=== PATIENT | male | born 1960 | race Caucasian/White ===

== ENCOUNTER 2022-07-26 11:04 | Inpatient (IN) | payer MEDICAID ==
[2022-07-26] VITALS (10 sets, daily range): BP systolic 93–149; BP diastolic 38–107
[~2022-07-26] VITALS: Ht 172.7 cm; Wt 137.6 kg
[2022-07-26] MEDS ORDERED: BUPIVACAINE 0.25% 75 MG/30 ML VIAL ONE (12:52)
[2022-07-26] MEDS ORDERED: VANCOMYCIN 1 GM VIAL ONE (13:01)
[2022-07-26] MEDS ORDERED: ROCURONIUM BROMIDE 50 MG/5 ML ONE (13:08)
[2022-07-26] MEDS ORDERED: EPINEPHRINE (1:1000) 1 MG/ML AMPUL ONE (13:08)
[2022-07-26] MEDS ORDERED: MIDAZOLAM HCL 2 MG/2ML VIAL ONE ×2 (13:47→18:06)
[2022-07-26] MEDS ORDERED: FENTANYL PF 100MCG/2ML AMPUL ONE ×2 (13:47→18:06)
[2022-07-26] MEDS ORDERED: SEVOFLURANE 250 ML BOTTLE IH ONE (16:01)
[2022-07-26] MEDS ORDERED: TRANEXAMIC ACID 1,000 MG/10 ML VIAL ONE (16:48)
[2022-07-26] MEDS ORDERED: ALBUTEROL FS 2.5 MG/3 ML VIAL.NEB ONE ×2 (17:54→18:09)
[2022-07-26] MEDS ORDERED: IPRATROPIUM NEB FS 0.5 MG/2.5 ML AMPUL.NEB ONE (18:09)
[2022-07-26] MEDS ORDERED: MEPERIDINE25 MG SYR 25 MG/ML VIAL ONE (18:32)
[2022-07-26] MEDS ORDERED: ACETAMINOPHEN 325 MG TABLET PO PRN ×2 (19:00)
[2022-07-26] MEDS ORDERED: DOCUSATE SODIUM 250 MG CAPSULE PO PRN (19:00)
[2022-07-26] MEDS ORDERED: HYDROCODONE/APAP 5/325MG TABLET PO PRN (19:00)
[2022-07-26] MEDS ORDERED: SENNOSIDES 8.6 MG TABLET PO PRN ×2 (19:00)
[2022-07-26] MEDS ORDERED: BISACODYL SUPP (10 MG) 10 MG/SUPP.RECT SUPP.RECT RC PRN (19:00)
[2022-07-26] MEDS ORDERED: DOCUSATE SODIUM 100 MG CAPSULE PO PRN (19:00)
--- NOTE | 2022-07-26 19:15 | NUR ---
ICU/MEDIA DIRECTOR RECIEVED REPORT FROM OR NURSE KALEY ROSE. SEE FLOWSHEET FOR ASSESSMENT. CALL LIGHT WITHIN REACH.
--- NOTE | 2022-07-26 19:30 | NUR ---
ICU/CLUB ROOM ATTENDANT CALLED [facility] GROUP FOR PRIMARY MD SINCE PT IS A DIRECT ADMIT FROM OR. WAITING FOR ORDERS
[2022-07-26 20:03] LABS: HEMOGLOBIN 11.3 g/dL (13.5-17.5)
--- NOTE | 2022-07-26 20:30 | NUR ---
ICU/DENTAL PRACTICE MANAGER H/H IS BACK AT 11.336. PT HAD EBL OF 1 LITER. PT HAS LABS IN MORNING
[2022-07-26] MEDS ORDERED: IV NS 0.9% 1,000 ML IV SCH (21:00)
[2022-07-26] MEDS ORDERED: ONDANSETRON HCL/PF 4 MG/2 ML VIAL IVP PRN (21:00)
[2022-07-26] MEDS: ENOXAPARIN SODIUM 40 MG/0.4 ML DISP.SYRIN SQ SCH (22:05)
--- NOTE | 2022-07-26 22:10 | NUR ---
ICU/INTERACTIVE MEDIA DESIGNER PT VOMITED X1 GREENISH BILE, ZOFRAN PRN IVP WAS GIVEN. WILL CONTINUE TO MONITOR THIS PT.
--- NOTE | 2022-07-26 22:15 | NUR ---
ICU/MEDICAL HOSPITAL SALES STAT ABG & CHEST XRAY FOR SOB. ABG WAS DONE RESULT ARE IN CHART PO2 IS 107, PT IS CURRENTLY ON SIMPLE MASK AT 10 LITERS TURNED DOWN TO 6 LITERS. AWAIT FOR CHEST XRAY
[2022-07-26] MEDS: MORPHINE SULFATE INJ 4 MG/ML DISP.SYRIN IV PRN (22:19)
--- NOTE | 2022-07-26 22:30 | NUR ---
ICU/CANDLES POURER MORPHINE 4 MG GIVEN FOR PAIN 10/10 TO RIGHT HIP, SURGERY SITE, BY STIFF NECK LOADER NURSE. WILL CONTINUE TO MONITOR THIS PT.
[2022-07-27] VITALS (16 sets, daily range): BP systolic 113–154; BP diastolic 65–93
--- NOTE | 2022-07-27 00:10 | NUR ---
ICU/MARKETING SUPPORT ASSISTANT PROCUREMENT BUYER MD CAME TO SEE PT, ORDERED LASIX 40MGX1 NOW. WILL MONITOR THIS PT.
[2022-07-27] MEDS ORDERED: ALBUTEROL FS 2.5 MG/0.5 ML VIAL.NEB NEB PRN (00:30)
[2022-07-27] MEDS: ANCEF 1 GM/50 ML D5W IV SCH ×4 (01:10→06:28)
--- NOTE | 2022-07-27 01:23 | NUR ---
ICU/AREA LOSS PREVENTION MANAGER TRIMMER AND REINFORCER MD GAVE ORDER FOR LASIX, AND STAT LABS. ALSO D/C IVF SINCE PT GOT 6 LITERS OF FLUID IN OR.
[2022-07-27] MEDS ORDERED: FUROSEMIDE 40 MG/4 ML VIAL IV ONE (01:30)
[2022-07-27] MEDS: HYDROCODONE/APAP 5/325MG TABLET PO PRN ×2 (01:41→07:00)
--- NOTE | 2022-07-27 01:45 | NUR ---
ICU/PLATFORM ATTENDANT PT REQUESTED NORCO FOR PAIN RATED 7/10, TO RIGHT HIP AREA. APPLIED ICE TO AREA.
[2022-07-27] MEDS: IPRATROPIUM NEB FS 0.5 MG/2.5 ML AMPUL.NEB IH SCH ×4 (01:48→19:38)
[2022-07-27] MEDS: ALBUTEROL FS 2.5 MG/0.5 ML VIAL.NEB NEB SCH ×4 (01:48→19:39)
--- NOTE | 2022-07-27 02:34 | NUR ---
ICU/CRACKER DOUGH MIXER UNIT BUSY WITH ADMISSIONS LATE GIVING MEDICATIONS. PT GIVEN LASIX 40MH AND RT GAVE BREATHING TREATMENT.
[2022-07-27] MEDS: MORPHINE SULFATE INJ 4 MG/ML DISP.SYRIN IV PRN ×2 (04:26→08:41)
[2022-07-27 05:29] LABS: BASOPHILS % (AUTO) 0.1 % (0.0-2.0); HEMATOCRIT 32 % (39-51); HEMOGLOBIN 10.4 g/dL (13.5-17.5); LYMPHOCYTES # (AUTO) 0.5 K/uL (0.8-4.8); LYMPHOCYTES % (AUTO) 4.1 % (20.0-44.0); MEAN CORPUSCULAR HGB CONC 33 g/dl (31.0-36.0); MEAN CORPUSCULAR VOLUME 94 fL (80-96); MONOCYTES # (AUTO) 0.6 K/uL (0.1-1.30); MONOCYTES % (AUTO) 5.3 % (2.0-12.0); NEUTROPHILS # (AUTO) 11.1 K/uL (1.8-8.9); NEUTROPHILS % (AUTO) 90.5 % (43.0-81.0); PLATELET COUNT (AUTO) 172 K/uL (150-450); RED BLOOD CELL COUNT(AUTO) 3.36 MIL/uL (4.5-6.0); WHITE BLOOD COUNT (AUTO) 12.3 K/uL (4.3-11.0)
--- NOTE | 2022-07-27 05:30 | NUR ---
ICU/LIFE ADVISOR MORPHINE 4 MG GIVEN FOR PAIN 10/10 TO RIGHT HIP, SURGERY SITE, BY CAFETERIA OPERATOR NURSE. WILL CONTINUE TO MONITOR THIS PT.
[2022-07-27 05:40] LABS: ALBUMIN 3.2 g/dL (3.4-5.0); BILIRUBIN,TOTAL 0.3 mg/dL (0.2-1.0); CALCIUM, SERUM 8.2 mg/dL (8.5-10.1); CREATININE 1.5 mg/dL (0.6-1.3); MAGNESIUM 1.9 mg/dL (1.8-2.4); PHOSPHORUS 3.9 mg/dL (2.5-4.9); POTASSIUM 4.7 mmol/L (3.5-5.1); TOTAL PROTEIN, SERUM 6.1 g/dL (6.4-8.2)
--- NOTE | 2022-07-27 05:52 | NUR ---
ICU/ARTIFICIAL LEATHER CALENDER OPERATOR PT GIVEN LASIX 20MG AND RT GAVE BREATHING TREATMENT. CALL LIGHT WITHIN REACH, PT REMAINS BUSY DUE TO MANY DEMAND. PT IS CURRENTLY ON 6 LITERS N/C WITH SATURATION AT 95-97%.
[2022-07-27] MEDS ORDERED: FUROSEMIDE 20 MG/2 ML VIAL IV ONE (06:00)
[2022-07-27] MEDS ORDERED: IPRATROPIUM/ALBUTEROL INHALER IH SCH (06:00)
--- NOTE | 2022-07-27 07:00 | NUR ---
CARE CONNECTOR NOTE RECEIVED PATIENT IN BED RESTING ALERT ORIENTED X4 VERBALLY RESPONSIVE ON 6L OXYGEN VIA NASAL CANNULA, O2:97% IV SITE IS ON RIGHT FOREARM INTACT PATENT,DELGADO CATH IN PLACE URINE DRAINING YELLOW/CLEAR BY GRAVITY SAFETY MEASURE IMPLEMENT BED IN LOW POSITION AND LOCKED,HEAD OF THE BED ELEVATED, CALL LIGHT WITHIN REACH CONTINUE TO MONITOR.
--- NOTE | 2022-07-27 07:01 | NUR ---
ICU/CARBON CAPTURE POWER PLANT OPERATOR PERCOCET 1 TAB WAS GIVEN FOR PAIN RATED 7/10 TO SURGERY SITE. CALL LIGHT WITHIN REACH. REPORT GIVEN TO DAY NURSE SARAH.
[2022-07-27] MEDS ORDERED: oxyCODONE HCL SR 10MG TAB.SR.12H PO PRN (09:00)
[2022-07-27] MEDS ORDERED: oxyCODONE/APAP (5/325 MG) 1 UDTAB TABLET PO PRN ×2 (09:00→12:30)
[2022-07-27] MEDS ORDERED: NALOXONE HCL 0.4 MG/ML AMPUL IV PRN (09:00)
--- NOTE | 2022-07-27 09:45 | NUR ---
MARKETING COMPLIANCE MANAGER NOTE REPORT GIVEN TO DINO BUTTERFIELD AT [facility],PATIENT WILL BE ON TELE MONITORING MD ORDERED WILL TRANSFER TO ROOM 120-2.
--- NOTE | 2022-07-27 10:00 | NUR ---
CELLOPHANE PRESS OPERATOR NOTE PATIENT TRANSFERRED TO ROOM 120-2 PER ACLS PROTOCOL,DINO RN REPORT GIVEN FOR CONTINUATION OF CAR.
--- NOTE | 2022-07-27 10:20 | NUR ---
JUAN TEXTILE MACHINE OPERATOR NOTES: RECEIVED 62YO MALE PT FROM ICU VIA BED ACCOMPANIED BY RN BENJAMIN. PT ALERT AND ORIENTED X 4 AND ABLE TO MAKE NEEDS KNOWN. ON O2 INHALATION @ 6LPM VIA NC AND SATURATING 100 %. SHAPE BRICK MOLDER WITH CURRENT READING OF : SINUS TACHY @100. NOTED WITH R FOREARM GAUGE 22 PATENT,INTACT AND SL. SURGICAL DRESSING ON RIGHT LEG S/P R HIP ORIF WITH BONE GRAFT UNDER DR MAGALLON, NOTED WITH LUIS WRAP NO UNUSUAL DISCHARGE AND NOTED WITH ACCORDION HEMOVAC NOTED. DVT PUMP NOTED. DELGADO CATHETER DRAINING CLEAR YELLOW COLORED URINE. SKIN ISSUES NOTED: R/L ARM PURPLISH DISCOLORATION. VS WITHIN NORMAL LIMITS. HOME MEDS BROUGHT TO PHARMACY, FOR MED RECON AND SUPERVISOR LABORATORY ANIMAL FACILITY KEH INFORMED. SAFETY MEASURES INITIATED: BED LOCKED AND IN LOWEST POSITION, SIDE RAILS UP X2. CALL LIGHT AND BED SIDE TABLE IN EASY REACH FOR HELP. WILL MONITOR ACCORDINGLY.
[2022-07-27] MEDS ORDERED: ALBU18HF2 IH (10:45)
[2022-07-27] MEDS ORDERED: LOSA25TA27 PO (10:45)
[2022-07-27] MEDS ORDERED: BUDE10.2 IH (10:45)
[2022-07-27] MEDS ORDERED: UMEC62.5 INH (10:45)
[2022-07-27] MEDS ORDERED: METO50TA16 PO (10:45)
[2022-07-27] MEDS ORDERED: PANT40TA2 PO (10:45)
[2022-07-27] MEDS ORDERED: HYDR-3980 MT (10:45)
[2022-07-27] MEDS ORDERED: GABA300C PO (10:45)
[2022-07-27] MEDS ORDERED: OXYC1TAB8 PO (10:45)
[2022-07-27] MEDS ORDERED: MONT10TA22 PO (10:45)
[2022-07-27] MEDS ORDERED: FLUT16SP (10:45)
[2022-07-27] MEDS ORDERED: GLIM1TAB18 PO (10:45)
[2022-07-27] MEDS ORDERED: FERR325T23 PO (10:45)
[2022-07-27] MEDS ORDERED: SPIR25TA6 PO (10:45)
[2022-07-27] MEDS ORDERED: ALBU2.5V38 NEB (10:45)
[2022-07-27] MEDS ORDERED: BUSP10TA3 PO (10:45)
[2022-07-27] MEDS ORDERED: HYDR-4077 PO (10:45)
[2022-07-27] MEDS ORDERED: ASPI-1169 PO (10:45)
[2022-07-27] MEDS ORDERED: BUPR-53 PO (10:45)
[2022-07-27] MEDS ORDERED: METF-440 PO (10:45)
[2022-07-27] MEDS ORDERED: PSEU30TA34 PO (10:45)
[2022-07-27] MEDS ORDERED: FURO-145 PO (10:45)
[2022-07-27] MEDS ORDERED: IBUP-1955 PO (10:45)
[2022-07-27] MEDS ORDERED: ATOR10TA PO (10:45)
[2022-07-27] MEDS ORDERED: AMLO-213 PO (10:45)
[2022-07-27] MEDS ORDERED: ALPR0.5T8 PO (10:45)
[2022-07-27] MEDS ORDERED: ROFL250T PO (10:45)
[2022-07-27] MEDS ORDERED: HYDR200T4 PO (10:45)
[2022-07-27] MEDS ORDERED: METHOCARBAMOL (500MG) 500 MG TABLET PO PRN (11:30)
[2022-07-27] MEDS ORDERED: METHOCARBAMOL (500MG) 500 MG TABLET PO SCH (12:00)
[2022-07-27] MEDS ORDERED: HYDROCODONE/APAP 10/325MG TABLET PO PRN (12:30)
[2022-07-27] MEDS ORDERED: ALPRAZOLAM 0.5 MG TABLET PO PRN (12:30)
[2022-07-27] MEDS: GABAPENTIN 300 MG CAPSULE PO SCH ×2 (13:14→16:45)
[2022-07-27] MEDS: HYDROMORPHONE INJ 2 MG/ML DISP.SYRIN IV PRN ×3 (13:19→22:25)
[2022-07-27] MEDS: NICOTINE PATCH (21MG) 21 MG PATCH.TD24 TD SCH (15:09)
[2022-07-27] MEDS: SPIRONOLACTONE 25 MG TABLET PO SCH (16:45)
[2022-07-27] MEDS: hydrALAZINE HCL 50 MG TABLET PO SCH (16:47)
[2022-07-27] MEDS: HYDROXYCHLOROQUINE 200 MG TABLET PO SCH (16:47)
[2022-07-27] MEDS: busPIRone 5 MG TABLET PO SCH (16:49)
[2022-07-27] MEDS: METOPROLOL TARTRATE 50 MG TABLET PO SCH (16:49)
[2022-07-27] MEDS: FERROUS SULFATE (325 MG) 325 MG/TAB TABLET PO SCH (16:49)
[2022-07-27] MEDS: BUDESONIDE INH SCH (17:22)
[2022-07-27] MEDS: FORMOTEROL FUMARATE INH SCH (17:22)
--- NOTE | 2022-07-27 17:39 | NUR ---
RN NOTES: CALLED LABS FOR URINE SPECIMEN GROCERY CADDY.
--- NOTE | 2022-07-27 17:40 | NUR ---
RN NOTES: PT REQUESTED: DC NORCO 10/325 Q 6HRS AND HAVE PERCOCET 5/325 MG/TAB Q 4. DR TONY HERRERA. ORDERS NOTED AND CARRIED OUT. INFORMED PT.
--- NOTE | 2022-07-27 18:44 | NUR ---
RN NOTES: DR DEL TORO ORDERED DC OXYCONTIN 10, ORDERS NOTED AND CARRIED OUT.
--- NOTE | 2022-07-27 18:45 | NUR ---
FRAME ASSEMBLER CLOSING NOTES: PT IN BED, AWAKE, ALERT AND ORIENTED X 4 AND ABLE TO MAKE NEEDS KNOWN. NO SOB OR CARDIAC DISTRESS. ON O2 INHALATION @6LPM VIA NC AND SAT 100%. POND WORKER: CURRENT READING SINUS RHYTHM WITH PACS@79BPM. IV ACCESS ON L HAND GAUGE 22 PATENT,INTACT AND SL. SURGICAL DRESSING WRAPPED WITH LUIS BANDAGE ON RIGHT LEG WITH ATTACHED WOUND VACUUM (ACCORDION) DRAINED 100 ML OF BLOOD. FC DRAINING CLEAR YELLOW COLORED URINE VIA GRAVITY DRAINED 1,200ML. SAFETY MEASURES MAINTAINED: BED LOCKED AND IN LOWEST POSITION, SIDE RAILS UP X 2 CALL LIGHT AND BED SIDE TABLE IN EASY REACH AND WILL MONITOR ACCORDINGLY.
[2022-07-27 19:19] LABS: BILIRUBIN,URINE NEGATIVE (NEGATIVE); COLOR,URINE YELLOW (YELLOW); LEUKOCYTE ESTERASE ,URINE NEGATIVE (NEGATIVE); NITRITE, URINE NEGATIVE (NEGATIVE); PROTEIN,URINE NEGATIVE (NEGATIVE); UGLUCOSE NEGATIVE (NEGATIVE); UROBILINOGEN,URINE 0.2 EU/dL (0.2)
[2022-07-27] MEDS: oxyCODONE/APAP (5/325 MG) 1 UDTAB TABLET PO PRN (19:19)
[2022-07-27] MEDS: ENOXAPARIN SODIUM 40 MG/0.4 ML DISP.SYRIN SQ SCH (19:19)
[2022-07-27 19:28] LABS: BACTERIA,URINE None seen /HPF (None Seen); SQUAMOUS EPITHELIAL CELL,UR 0-2 /HPF (None Seen); WBC,URINE 0-2 /HPF (0-3)
[2022-07-27 19:32] LABS: CREATININE, URINE 72.7 MG/DL (30.0-125.0)
[2022-07-27 19:55] LABS: HEMOGLOBIN 9.3 g/dL (13.5-17.5)
--- NOTE | 2022-07-27 20:00 | NUR ---
RECEIVED PATIENT IN BED, ALERT/ORIENTED X4, 6LPM VIA NC, SPO2 94%, CONSTANT RIGHT LEG PAIN OF 9/10, S/P RIGHT HIP ORIF WITH BONE GRAFT 07/26/[address] MAGALLON. DRESSING LUIS WRAP, CLEAN, DRY AND INTACT, ACCORDION DRAIN, SANGUINEOUS DRAINAGE, DELGADO CATHETER DRAINING WELL, KEPT SAFE, WILL CONTINUE TO MONITOR.
[2022-07-28] VITALS: BP 121/67
[2022-07-28] MEDS: oxyCODONE/APAP (5/325 MG) 1 UDTAB TABLET PO PRN ×5 (00:04→21:36)
[2022-07-28] MEDS: IPRATROPIUM NEB FS 0.5 MG/2.5 ML AMPUL.NEB IH SCH ×4 (01:00→21:20)
[2022-07-28] MEDS: ALBUTEROL FS 2.5 MG/0.5 ML VIAL.NEB NEB SCH ×4 (01:00→21:20)
[2022-07-28] MEDS: HYDROMORPHONE INJ 2 MG/ML DISP.SYRIN IV PRN ×5 (02:50→23:41)
[2022-07-28 04:00] VITALS: BP 128/63
[2022-07-28 07:08] LABS: BASOPHILS # (AUTO) 0.1 K/uL (0.0-0.2); BASOPHILS % (AUTO) 0.5 % (0.0-2.0); EOSINOPHILS % (AUTO) 0.6 % (0.0-6.0); HEMATOCRIT 28 % (39-51); HEMOGLOBIN 9.1 g/dL (13.5-17.5); LYMPHOCYTES # (AUTO) 1.4 K/uL (0.8-4.8); LYMPHOCYTES % (AUTO) 11.9 % (20.0-44.0); MEAN CORPUSCULAR HGB CONC 32 g/dl (31.0-36.0); MEAN CORPUSCULAR VOLUME 95 fL (80-96); MONOCYTES # (AUTO) 1.1 K/uL (0.1-1.30); MONOCYTES % (AUTO) 9.3 % (2.0-12.0); NEUTROPHILS % (AUTO) 77.7 % (43.0-81.0); PLATELET COUNT (AUTO) 154 K/uL (150-450); RED BLOOD CELL COUNT(AUTO) 2.94 MIL/uL (4.5-6.0); WHITE BLOOD COUNT (AUTO) 11.6 K/uL (4.3-11.0)
[2022-07-28 08:00] VITALS: BP 140/70
[2022-07-28 08:04] LABS: CALCIUM, SERUM 8.6 mg/dL (8.5-10.1); CREATININE 1.4 mg/dL (0.6-1.3); POTASSIUM 4.2 mmol/L (3.5-5.1)
--- NOTE | 2022-07-28 08:07 | NUR ---
FOUNDING PARTNER OPENING NOTES: PT IN BED, AWAKE, ALERT AND ORIENTED X 4 AND ABLE TO MAKE NEEDS KNOWN. NO SOB OR CARDIAC DISTRESS. ON O2 INHALATION @6LPM VIA NC AND SAT 95%. DIRECTOR OF COLLECTIONS: CURRENT READING SINUS RHYTHM WITH 120 BPM. IV ACCESS ON L HAND GAUGE 22 PATENT,INTACT AND SL. SURGICAL DRESSING WRAPPED WITH LUIS BANDAGE ON RIGHT LEG WITH ATTACHED WOUND VACUUM. FC DRAINING CLEAR YELLOW COLORED URINE VIA GRAVITY. SAFETY MEASURES MAINTAINED: BED LOCKED AND IN LOWEST POSITION, SIDE RAILS UP X 2 CALL LIGHT AND BED SIDE TABLE IN EASY REACH AND WILL MONITOR ACCORDINGLY.
[2022-07-28] MEDS: BUDESONIDE INH SCH ×2 (08:20→16:16)
[2022-07-28] MEDS: FORMOTEROL FUMARATE INH SCH ×2 (08:20→16:16)
[2022-07-28] MEDS: GLIMEPIRIDE 1 MG TABLET PO SCH (08:20)
[2022-07-28] MEDS: NICOTINE PATCH (21MG) 21 MG PATCH.TD24 TD SCH (08:20)
[2022-07-28] MEDS: MONTELUKAST SODIUM (10MG) 10 MG TABLET PO SCH (08:20)
[2022-07-28] MEDS: INCRUSE ELLIPTA INH SCH (08:20)
[2022-07-28] MEDS: GABAPENTIN 300 MG CAPSULE PO SCH ×3 (08:21→16:15)
[2022-07-28] MEDS: ATORVASTATIN 10 MG TABLET PO SCH (08:21)
[2022-07-28] MEDS: ASPIRIN 81 MG TAB.CHEW PO SCH (08:23)
[2022-07-28] MEDS: busPIRone 5 MG TABLET PO SCH ×2 (08:24→16:15)
[2022-07-28] MEDS: FERROUS SULFATE (325 MG) 325 MG/TAB TABLET PO SCH ×2 (08:29→16:16)
[2022-07-28] MEDS: ROFLUMILAST 500 MG PO SCH (08:30)
[2022-07-28] MEDS: SPIRONOLACTONE 25 MG TABLET PO SCH (09:00)
[2022-07-28] MEDS: HYDROXYCHLOROQUINE 200 MG TABLET PO SCH ×2 (09:00→16:44)
[2022-07-28] MEDS: BUPROPION XL 150 MG TAB.ER.24 PO SCH (09:00)
[2022-07-28] MEDS: hydrALAZINE HCL 50 MG TABLET PO SCH (09:00)
[2022-07-28] MEDS ORDERED: ROFLUMILAST 500 MG PO SCH ×2 (09:00)
[2022-07-28] MEDS: PANTOPRAZOLE 40 MG TABLET.DR PO SCH (09:01)
[2022-07-28] MEDS: FUROSEMIDE 20 MG TABLET PO SCH (10:10)
[2022-07-28] MEDS: METOPROLOL TARTRATE 50 MG TABLET PO SCH ×2 (10:10→17:00)
[2022-07-28] MEDS: LOSARTAN POTASSIUM 25 MG TABLET PO SCH (10:11)
[2022-07-28] MEDS: AMLODIPINE BESYLATE 10 MG TABLET PO SCH (10:11)
[2022-07-28 12:00] VITALS: BP 115/66
--- NOTE | 2022-07-28 15:14 | NUR ---
Radha Badillo aware, BIODIESEL OPERATIONS MANAGER that pt refused Aldactone, wellbutrin and Apresoline, pt claimed he isnt taking those meds anymore, per Modesto BIODIESEL OPERATIONS MANAGER to dc it, noted and carried out
[2022-07-28] MEDS: CEFAZOLIN 2 GM in IV D5W 100 ML IV SCH ×2 (15:55→23:42)
[2022-07-28 16:00] VITALS: BP 113/69
[2022-07-28] MEDS: POLYETHYLENE GLYCOL 3350 17 GM POWD.PACK PO SCH (16:27)
--- NOTE | 2022-07-28 17:22 | NUR ---
Deena Badillo NP aware that pt is refusing Plaquenil and stated he isnt taking it anymore, Deena Badillo NP with orders to DC Plaquenil, noted and carried out
[2022-07-28] MEDS: ENOXAPARIN SODIUM 40 MG/0.4 ML DISP.SYRIN SQ SCH (18:41)
--- NOTE | 2022-07-28 18:43 | NUR ---
SUPPLIER SPECIALIST CLOSING NOTES: PT IN BED, AWAKE, ALERT AND ORIENTED X 4 AND ABLE TO MAKE NEEDS KNOWN. NO SOB OR CARDIAC DISTRESS. ON O2 INHALATION @6LPM VIA NC AND SAT 94%. AIR ROUTE CONTROLLER: CURRENT READING SINUS RHYTHM WITH 122 BPM. IV ACCESS ON RIGHT HAND GAUGE 22 PATENT,INTACT AND PATENT. SURGICAL DRESSING WRAPPED WITH LUIS BANDAGE ON RIGHT LEG WITH ATTACHED HEMOVAC AND DRAIN 40CC.. SAFETY MEASURES MAINTAINED: BED LOCKED AND IN LOWEST POSITION, SIDE RAILS UP X 2 CALL LIGHT AND BED SIDE TABLE IN EASY REACH AND WILL MONITOR ACCORDINGLY.
--- NOTE | 2022-07-28 19:48 | NUR ---
LIFESTYLE CONSULTANT OPENING NOTES: PT IN BED, AWAKE, ALERT AND ORIENTED X 4 AND ABLE TO MAKE NEEDS KNOWN. NO SOB OR CARDIAC DISTRESS. ON O2 INHALATION @6LPM VIA NC AND SAT 94%. FISCAL MANAGER: CURRENT READING SINUS RHYTHM WITH 122 BPM. IV ACCESS ON RIGHT HAND GAUGE 22 PATENT,INTACT AND PATENT. SURGICAL DRESSING WRAPPED WITH LUIS BANDAGE ON RIGHT LEG WITH ATTACHED HEMOVAC AND DRAIN. SAFETY MEASURES MAINTAINED: BED LOCKED AND IN LOWEST POSITION, SIDE RAILS UP X 2 CALL LIGHT AND BED SIDE TABLE IN EASY REACH . PT REQUESTED PRN DILAUDID MED GIVEN AND TOLERATED WELL.
[2022-07-28 20:00] VITALS: BP 133/64
--- NOTE | 2022-07-28 20:00 | NUR ---
RN NOTE PER PHARMACIST OKAY TO GIVE THE NEXT DOSE OF ANCEF IN Q8HR ITS SUPPOSED TO BE GIVEN DESPITE IT BEING SCHEDULED FOR 2100 SINCE IT WILL ONLY HAVE BEEN 4 1/2 HRS SINCE THE PREVIOUS DOSE WAS ADMINISTERED.
--- NOTE | 2022-07-28 21:45 | NUR ---
RN NOTE PRN PERCOCET GIVEN FOR PAIN 12/13 TOLERATED WELL.
--- NOTE | 2022-07-29 00:09 | NUR ---
RN NOTE PRN DILAUDID GIVEN FOR PAIN 78/10 TOLERATED WELL.
[2022-07-29 00:19] VITALS: BP 129/89
[2022-07-29] MEDS: IPRATROPIUM NEB FS 0.5 MG/2.5 ML AMPUL.NEB IH SCH ×4 (01:30→20:02)
[2022-07-29] MEDS: ALBUTEROL FS 2.5 MG/0.5 ML VIAL.NEB NEB SCH ×4 (01:30→20:02)
[2022-07-29] MEDS: oxyCODONE/APAP (5/325 MG) 1 UDTAB TABLET PO PRN ×3 (03:41→13:32)
--- NOTE | 2022-07-29 03:47 | NUR ---
RN NOTE PRN PERCOCET GIVEN FOR PAIN / TOLERATED WELL.
[2022-07-29 04:40] VITALS: BP 142/79
[2022-07-29] MEDS: HYDROMORPHONE INJ 2 MG/ML DISP.SYRIN IV PRN ×4 (05:44→22:12)
--- NOTE | 2022-07-29 05:56 | NUR ---
RN NOTE PRN DILAUDID GIVEN FOR PAIN 12/13 TOLERATED WELL.
--- NOTE | 2022-07-29 05:57 | NUR ---
RN NOTE 40CC OF SANGUINOUS DRAINAGE REMOVED FOR HEMOVAC.
[2022-07-29 05:58] LABS: BASOPHILS # (AUTO) 0.1 K/uL (0.0-0.2); BASOPHILS % (AUTO) 0.5 % (0.0-2.0); EOSINOPHILS % (AUTO) 1.3 % (0.0-6.0); HEMATOCRIT 26 % (39-51); HEMOGLOBIN 8.8 g/dL (13.5-17.5); LYMPHOCYTES # (AUTO) 1.1 K/uL (0.8-4.8); LYMPHOCYTES % (AUTO) 10.4 % (20.0-44.0); MEAN CORPUSCULAR HGB CONC 34 g/dl (31.0-36.0); MEAN CORPUSCULAR VOLUME 94 fL (80-96); MONOCYTES % (AUTO) 9.3 % (2.0-12.0); NEUTROPHILS # (AUTO) 8.3 K/uL (1.8-8.9); NEUTROPHILS % (AUTO) 78.5 % (43.0-81.0); PLATELET COUNT (AUTO) 161 K/uL (150-450); RED BLOOD CELL COUNT(AUTO) 2.76 MIL/uL (4.5-6.0); WHITE BLOOD COUNT (AUTO) 10.6 K/uL (4.3-11.0)
[2022-07-29 06:12] LABS: CALCIUM, SERUM 8.4 mg/dL (8.5-10.1); CREATININE 1.4 mg/dL (0.6-1.3); POTASSIUM 3.5 mmol/L (3.5-5.1)
--- NOTE | 2022-07-29 06:40 | NUR ---
CONVENTION WORKER CLOSING NOTES: PT IN BED, AWAKE, ALERT AND ORIENTED X 4 AND ABLE TO MAKE NEEDS KNOWN. NO SOB OR CARDIAC DISTRESS. ON O2 INHALATION @4LPM VIA NC AND SAT 96%. CONCRETE BUCKET HOOKER: CURRENT READING SINUS RHYTHM. IV ACCESS ON RIGHT HAND GAUGE 22 PATENT,INTACT AND PATENT. SURGICAL DRESSING WRAPPED WITH LUIS BANDAGE ON RIGHT LEG WITH ATTACHED HEMOVAC AND DRAIN 40CC OUTPUT. SAFETY MEASURES MAINTAINED: BED LOCKED AND IN LOWEST POSITION, SIDE RAILS UP X 2 CALL LIGHT AND BED SIDE TABLE IN EASY REACH .
--- NOTE | 2022-07-29 07:31 | NUR ---
PACKAGE SORTER OPENING NOTES: PT IN BED, AWAKE, ALERT AND ORIENTED X 4, ABLE TO MAKE NEEDS KNOWN. NO SOB OR CARDIAC DISTRESS. ON O2 INHALATION @4LPM VIA NC. IV ACCESS ON RIGHT HAND GAUGE 22 PATENT,INTACT AND PATENT. SURGICAL DRESSING WRAPPED WITH LUIS BANDAGE ON RIGHT LEG WITH ATTACHED HEMOVAC. ALL SAFETY MEASURES IN PLACE: BED LOCKED AND IN LOWEST POSITION, SIDE RAILS UP X 2 CALL LIGHT AND BED SIDE TABLE IN EASY REACH. WILL CONTINUE TO MONITOR .
[2022-07-29 08:00] VITALS: BP 133/58
[2022-07-29] MEDS: GLIMEPIRIDE 1 MG TABLET PO SCH (08:08)
[2022-07-29] MEDS: FUROSEMIDE 20 MG TABLET PO SCH (08:08)
[2022-07-29] MEDS: ASPIRIN 81 MG TAB.CHEW PO SCH (08:08)
[2022-07-29] MEDS: INCRUSE ELLIPTA INH SCH (08:08)
[2022-07-29] MEDS: PANTOPRAZOLE 40 MG TABLET.DR PO SCH (08:08)
[2022-07-29] MEDS: FORMOTEROL FUMARATE INH SCH ×2 (08:08→16:47)
[2022-07-29] MEDS: MONTELUKAST SODIUM (10MG) 10 MG TABLET PO SCH (08:08)
[2022-07-29] MEDS: busPIRone 5 MG TABLET PO SCH ×2 (08:08→16:49)
[2022-07-29] MEDS: BUDESONIDE INH SCH ×2 (08:08→16:47)
[2022-07-29] MEDS: POLYETHYLENE GLYCOL 3350 17 GM POWD.PACK PO SCH (08:08)
[2022-07-29] MEDS: LOSARTAN POTASSIUM 25 MG TABLET PO SCH (08:09)
[2022-07-29] MEDS: FERROUS SULFATE (325 MG) 325 MG/TAB TABLET PO SCH ×2 (08:09→16:47)
[2022-07-29] MEDS: AMLODIPINE BESYLATE 10 MG TABLET PO SCH (08:09)
[2022-07-29] MEDS: GABAPENTIN 300 MG CAPSULE PO SCH ×4 (08:09→16:51)
[2022-07-29] MEDS: METOPROLOL TARTRATE 50 MG TABLET PO SCH ×2 (08:10→16:48)
[2022-07-29] MEDS: NICOTINE PATCH (21MG) 21 MG PATCH.TD24 TD SCH (08:10)
[2022-07-29] MEDS: ROFLUMILAST 500 MG PO SCH ×2 (08:10→21:18)
[2022-07-29] MEDS: ATORVASTATIN 10 MG TABLET PO SCH (08:10)
[2022-07-29] MEDS: CEFAZOLIN 2 GM in IV D5W 100 ML IV SCH ×3 (09:06→23:23)
--- NOTE | 2022-07-29 11:07 | NUR ---
SPECIALTY PLANT SUPERVISOR NOTES PATIENT REQUESTED HOME MED ROFLUMILAST (2 EACH) BE SWITCHED TO PM. PHARMACY NOTIFIED.
--- NOTE | 2022-07-29 11:28 | NUR ---
KETTLE CLEANER NOTES PATIENT REFUSED MEDICATION STATING THAT HE NO LONGER TAKES MONTELUKAST OR GLIMEPIRIDE. PER TONY BUTTERFIELD VIDEO GAME ENGINEER, DISCONTINUED MEDICATIONS.
[2022-07-29 12:00] VITALS: BP 108/54
[2022-07-29 16:00] VITALS: BP 123/48
--- NOTE | 2022-07-29 19:38 | NUR ---
FACTORY LAY OUT ENGINEER CLOSING NOTES PT IN BED, AWAKE, ALERT AND ORIENTED X 4. ON O2 INHALATION @4.5 LPM VIA NC. ON ELECTRONIC MONITOR WITH SR/ST. IV ACCESS ON RIGHT HAND GAUGE 22 PATENT, INTACT AND PATENT. SURGICAL DRESSING WRAPPED WITH LUIS BANDAGE ON RIGHT LEG WITH ATTACHED HEMOVAC. PATIENT REQUESTED HIS BED BE CHANGED TO ONE WHERE HOB CAN BE ELEVATED FURTHER UP. WILL ENDORSE TO ONCOMING SHIFT RN. ALL SAFETY MEASURES MAINTAINED: BED LOCKED AND IN LOWEST POSITION, SIDE RAILS UP X 2 CALL LIGHT AND BED SIDE TABLE IN EASY REACH. WILL ENDORSE TO ONCOMING SHIFT FOR COLBY.
[2022-07-29 20:00] VITALS: BP 100/61
--- NOTE | 2022-07-29 20:00 | NUR ---
RN OPENING NOTE PATIENT AWAKE IN BED WATCHING TV. A/OX4. NO S/S OF DISTRESS, BREATHING WITHOUT DIFFICULTY ON 5L NC. R-HAND #22 INTACT AND PATENT. ACCORDION DRAIN INTACT. TELE READS SR 78. SAFETY MEASURES IN PLACE: BED LOCKED AND AT LOWEST POSITION, MID-FOWLERS, RAILS UP X2, CALL GAMEZ WITHIN REACH. WILL CONTINUE TO MONITOR PATIENT.
[2022-07-29] MEDS: MORPHINE SULFATE INJ 4 MG/ML DISP.SYRIN IV PRN (20:22)
[2022-07-29] MEDS: ENOXAPARIN SODIUM 40 MG/0.4 ML DISP.SYRIN SQ SCH (20:22)
[2022-07-30 00:35] VITALS: BP 105/60
[2022-07-30] MEDS: ALBUTEROL FS 2.5 MG/0.5 ML VIAL.NEB NEB SCH ×4 (01:17→20:16)
[2022-07-30] MEDS: IPRATROPIUM NEB FS 0.5 MG/2.5 ML AMPUL.NEB IH SCH ×4 (01:17→20:16)
--- NOTE | 2022-07-30 04:00 | NUR ---
RN NOTE PATIENT REFUSED TO BE CLEANED. WILL TRY AGAIN LATER ON AT OR AROUND 0500. PATIENT O/W STABLE; WILL CONTINUE TO MONITOR PATIENT.
[2022-07-30 04:38] VITALS: BP 126/57
[2022-07-30] MEDS: HYDROMORPHONE INJ 2 MG/ML DISP.SYRIN IV PRN ×4 (05:35→23:50)
--- NOTE | 2022-07-30 06:33 | NUR ---
RN CLOSING NOTE PATIENT AWAKE IN BED. A/OX4. NO S/S OF DISTRESS, BREATHING WITHOUT DIFFICULTY ON 5L NC. R-HAND #22 TKO INTACT AND PATENT. TELE READS SR ST 104. SAFETY MEASURES IN PLACE: BED LOCKED AND AT LOWEST POSITION, MID-FOWLERS, RAILS UP X2, CALL GAMEZ WITHIN REACH. WILL ENDORSE TO NEXT SHIFT FOR COLBY.
[2022-07-30 07:18] LABS: CALCIUM, SERUM 8.6 mg/dL (8.5-10.1); CREATININE 1.3 mg/dL (0.6-1.3); POTASSIUM 3.5 mmol/L (3.5-5.1)
[2022-07-30 07:20] LABS: BASOPHILS # (AUTO) 0.1 K/uL (0.0-0.2); BASOPHILS % (AUTO) 0.8 % (0.0-2.0); EOSINOPHILS % (AUTO) 1.8 % (0.0-6.0); HEMATOCRIT 26 % (39-51); HEMOGLOBIN 8.7 g/dL (13.5-17.5); LYMPHOCYTES # (AUTO) 1.4 K/uL (0.8-4.8); LYMPHOCYTES % (AUTO) 15.1 % (20.0-44.0); MEAN CORPUSCULAR HGB CONC 33 g/dl (31.0-36.0); MEAN CORPUSCULAR VOLUME 95 fL (80-96); MONOCYTES # (AUTO) 0.8 K/uL (0.1-1.30); MONOCYTES % (AUTO) 9.3 % (2.0-12.0); NEUTROPHILS # (AUTO) 6.6 K/uL (1.8-8.9); PLATELET COUNT (AUTO) 204 K/uL (150-450); RED BLOOD CELL COUNT(AUTO) 2.78 MIL/uL (4.5-6.0)
--- NOTE | 2022-07-30 07:30 | NUR ---
Z OS MAINFRAME SYSTEMS PROGRAMMER OPENING NOTE PATIENT AWAKE IN BED WATCHING TV. A/O X4. ON NC 5L WITH NO SOB OR S/S OF RESPIRATORY DISTRESS. BREATHING EVEN AND UNLABORED. R-HAND #22 INTACT AND PATENT. ACCORDION DRAIN INTACT. ALL SAFETY MEASURES IN PLACE: BED LOCKED AND AT LOWEST POSITION, MID-FOWLERS, RAILS UP X2, AND CALL LIGHT WITHIN REACH. WILL CONTINUE TO MONITOR PATIENT.
[2022-07-30 08:00] VITALS: BP 118/80
[2022-07-30] MEDS: POLYETHYLENE GLYCOL 3350 17 GM POWD.PACK PO SCH (08:53)
[2022-07-30] MEDS: NICOTINE PATCH (21MG) 21 MG PATCH.TD24 TD SCH (08:53)
[2022-07-30] MEDS: GABAPENTIN 300 MG CAPSULE PO SCH ×3 (08:54→16:22)
[2022-07-30] MEDS: AMLODIPINE BESYLATE 10 MG TABLET PO SCH (08:54)
[2022-07-30] MEDS: ASPIRIN 81 MG TAB.CHEW PO SCH (08:54)
[2022-07-30] MEDS: PANTOPRAZOLE 40 MG TABLET.DR PO SCH (08:54)
[2022-07-30] MEDS: FUROSEMIDE 20 MG TABLET PO SCH (08:54)
[2022-07-30] MEDS: FERROUS SULFATE (325 MG) 325 MG/TAB TABLET PO SCH ×2 (08:54→16:22)
[2022-07-30] MEDS: busPIRone 5 MG TABLET PO SCH ×2 (08:55→16:22)
[2022-07-30] MEDS: LOSARTAN POTASSIUM 25 MG TABLET PO SCH (08:55)
[2022-07-30] MEDS: ATORVASTATIN 10 MG TABLET PO SCH (08:55)
[2022-07-30] MEDS: oxyCODONE/APAP (5/325 MG) 1 UDTAB TABLET PO PRN ×3 (08:55→21:17)
[2022-07-30] MEDS: FORMOTEROL FUMARATE INH SCH ×2 (08:57→16:24)
[2022-07-30] MEDS: INCRUSE ELLIPTA INH SCH (08:57)
[2022-07-30] MEDS: BUDESONIDE INH SCH ×2 (08:57→16:24)
[2022-07-30] MEDS: CEFAZOLIN 2 GM in IV D5W 100 ML IV SCH ×3 (08:57→23:50)
[2022-07-30] MEDS: METOPROLOL TARTRATE 50 MG TABLET PO SCH ×2 (09:41→16:23)
--- NOTE | 2022-07-30 10:39 | NUR ---
RN NOTES PER IFEOMA FULTON NP, RN, TERESA SHOULD BE CONTINUED. NEW RATE 10 ML/HR. KEEP TPN AT 60 ML/HR. Addendum: 07/30/22 at 1156 by KOLE HACKETT RN WRONG PATIENT. PLEASE DISREGARD.
[2022-07-30 12:00] VITALS: BP 110/61
[2022-07-30] MEDS ORDERED: MAGNESIUM HYDROXIDE 30 ML UDC PO ONE (14:00)
--- NOTE | 2022-07-30 15:30 | NUR ---
RN NOTES PATIENT HAD BOWEL MOVEMENT.
[2022-07-30 16:00] VITALS: BP 117/70
--- NOTE | 2022-07-30 17:08 | NUR ---
GREER NOTES PATIENT IV ACCESS DISLODGED CAUSING LEAKAGE OF FLUID. NEW IV ACCESS ON LFA 22G. Addendum: 07/30/22 at 1710 by KOLE HACKETT RN PLEASE DISREGARD. IV ACCESS NOT ON RFA.
--- NOTE | 2022-07-30 17:10 | NUR ---
RN NOTES NEW IV ACCESS ON RFA 22G.
[2022-07-30] MEDS: ENOXAPARIN SODIUM 40 MG/0.4 ML DISP.SYRIN SQ SCH (18:12)
--- NOTE | 2022-07-30 19:30 | NUR ---
OFFICE MACHINE SERVICER OPENING NOTES RECEIVED PT IN BED, AWAKE, ALERT AND ORIENTED X 4, ABLE TO MAKE NEEDS KNOWN. NO SOB OR CARDIAC DISTRESS. ON O2 INHALATION @5LPM VIA NC. IV ACCESS ON RIGHT HAND GAUGE 22 PATENT,INTACT AND PATENT. SURGICAL DRESSING WRAPPED WITH BANDAGE ON RIGHT LEG WITH ATTACHED HEMOVAC. ALL SAFETY MEASURES IN PLACE: BED LOCKED AND IN LOWEST POSITION, SIDE RAILS UP X 2 CALL LIGHT AND BED SIDE TABLE IN EASY REACH. WILL CONTINUE TO MONITOR .
--- NOTE | 2022-07-30 19:56 | NUR ---
DECONTAMINATION WORKER CLOSING NOTE PATIENT AWAKE IN BED WATCHING TV. A/O X4. ON NC 5L WITH NO SOB OR S/S OF RESPIRATORY DISTRESS. BREATHING EVEN AND UNLABORED. IV ACCESS ON RFA #22G INTACT AND PATENT. SURGICAL SITE INTACT WITH ACCORDION DRAIN INTACT. ALL DUE MEDS GIVE INCLUDING PRN PAIN MEDS. ALL SAFETY MEASURES IN PLACE: BED LOCKED AND AT LOWEST POSITION, MID-FOWLERS, RAILS UP X2, AND CALL LIGHT WITHIN REACH. WILL ENDORSE TO ONCOMING SHIFT FOR COLBY.
[2022-07-30 20:00] VITALS: BP 102/63
[2022-07-30] MEDS: ROFLUMILAST 500 MG PO SCH (21:13)
[2022-07-31] VITALS: BP 106/71
[2022-07-31] MEDS: ALBUTEROL FS 2.5 MG/0.5 ML VIAL.NEB NEB SCH ×4 (02:06→20:10)
[2022-07-31] MEDS: IPRATROPIUM NEB FS 0.5 MG/2.5 ML AMPUL.NEB IH SCH ×4 (02:06→20:10)
[2022-07-31] MEDS: oxyCODONE/APAP (5/325 MG) 1 UDTAB TABLET PO PRN ×3 (02:14→20:18)
[2022-07-31 04:00] VITALS: BP 142/64
[2022-07-31] MEDS: HYDROMORPHONE INJ 2 MG/ML DISP.SYRIN IV PRN ×3 (05:16→15:43)
--- NOTE | 2022-07-31 07:07 | NUR ---
YARDAGE CALLER CLOSING NOTES PT REMAINS IN BED, AWAKE, ALERT AND ORIENTED X 4, ABLE TO MAKE NEEDS KNOWN. NO SOB OR CARDIAC DISTRESS. ON O2 INHALATION @5LPM VIA NC. IV ACCESS ON RIGHT HAND GAUGE 22 PATENT,INTACT AND PATENT. SURGICAL DRESSING WRAPPED WITH BANDAGE ON RIGHT LEG WITH ATTACHED HEMOVAC 50 CC DRAINED. ALL DUE MEDS GIVEN, KEPT DRY AND CLEAN, ALL SAFETY MEASURES IN PLACE: BED LOCKED AND IN LOWEST POSITION, SIDE RAILS UP X 2 CALL LIGHT AND BED SIDE TABLE IN EASY REACH. WILL ENDORSE TO AM SHIFT NURSE FOR CONTINUITY OF CARE.
[2022-07-31 07:46] LABS: CALCIUM, SERUM 8.6 mg/dL (8.5-10.1); CREATININE 1.3 mg/dL (0.6-1.3); POTASSIUM 3.5 mmol/L (3.5-5.1)
[2022-07-31 08:00] VITALS: BP 113/66
[2022-07-31 08:24] LABS: BASOPHILS % (AUTO) 0.7 % (0.0-2.0); EOSINOPHILS % (AUTO) 2.8 % (0.0-6.0); HEMATOCRIT 25 % (39-51); LYMPHOCYTES # (AUTO) 1.3 K/uL (0.8-4.8); LYMPHOCYTES % (AUTO) 18.1 % (20.0-44.0); MEAN CORPUSCULAR HGB CONC 33 g/dl (31.0-36.0); MEAN CORPUSCULAR VOLUME 95 fL (80-96); MONOCYTES # (AUTO) 0.7 K/uL (0.1-1.30); MONOCYTES % (AUTO) 9.7 % (2.0-12.0); NEUTROPHILS % (AUTO) 68.7 % (43.0-81.0); PLATELET COUNT (AUTO) 224 K/uL (150-450); RED BLOOD CELL COUNT(AUTO) 2.59 MIL/uL (4.5-6.0); WHITE BLOOD COUNT (AUTO) 7.3 K/uL (4.3-11.0)
[2022-07-31] MEDS: ALBUTEROL FS 2.5 MG/3 ML VIAL.NEB NEB PRN (08:59)
[2022-07-31] MEDS: PANTOPRAZOLE 40 MG TABLET.DR PO SCH (09:00)
[2022-07-31] MEDS: BUDESONIDE INH SCH ×2 (09:00→17:00)
[2022-07-31] MEDS: FORMOTEROL FUMARATE INH SCH ×2 (09:00→17:00)
[2022-07-31] MEDS: CEFAZOLIN 2 GM in IV D5W 100 ML IV SCH ×3 (09:00→23:10)
[2022-07-31] MEDS: POLYETHYLENE GLYCOL 3350 17 GM POWD.PACK PO SCH ×2 (09:00→10:20)
[2022-07-31] MEDS: INCRUSE ELLIPTA INH SCH (10:02)
[2022-07-31] MEDS: FLUTICASONE PROPIONATE 16 GM BOTTLE NS PRN (10:03)
[2022-07-31] MEDS: NICOTINE PATCH (21MG) 21 MG PATCH.TD24 TD SCH (10:14)
[2022-07-31] MEDS: AMLODIPINE BESYLATE 10 MG TABLET PO SCH (10:18)
[2022-07-31] MEDS: LOSARTAN POTASSIUM 25 MG TABLET PO SCH (10:19)
[2022-07-31] MEDS: ATORVASTATIN 10 MG TABLET PO SCH (10:19)
[2022-07-31] MEDS: FERROUS SULFATE (325 MG) 325 MG/TAB TABLET PO SCH ×2 (10:20→18:07)
[2022-07-31] MEDS: FUROSEMIDE 20 MG TABLET PO SCH (10:20)
[2022-07-31] MEDS: METOPROLOL TARTRATE 50 MG TABLET PO SCH ×2 (10:20→18:09)
[2022-07-31] MEDS: busPIRone 5 MG TABLET PO SCH ×2 (10:21→18:07)
[2022-07-31] MEDS: GABAPENTIN 300 MG CAPSULE PO SCH ×3 (10:21→18:07)
[2022-07-31] MEDS: ASPIRIN 81 MG TAB.CHEW PO SCH (10:22)
--- NOTE | 2022-07-31 11:27 | NUR ---
[facility] NOT ADMINISTERED MED NOT AVAILABLE. PHARMACY INFORMED AND PER PHARMACY TO INFORM PATIENT TO BRING HOME MEDS. PATIENT INFORMED, PER PATIENT WILL TELL HIS GIRLFRIEND TO BRING IT.
[2022-07-31 12:00] VITALS: BP 111/69
[2022-07-31 16:00] VITALS: BP 119/69
--- NOTE | 2022-07-31 19:00 | NUR ---
RN CLOSING TELE NOTE: AWAKE AND ALERT TIMES FOUR. ON 02 5 LITERS NC SATING AT 98 %. RECOVERY SPECIALIST SINUS TACHY 109. IV ON RIGHT FOREARM 22 G. NO A/R OF ABX IV. RIGHT LOWER HIP DRESSING ON, RIGHT LOWER LEG COVERED WITH LUIS BANDAGE AND ACCORDION DRAIN 45 ML SANGUINEOUS OUTPUT. ABLE TO USE BEDSIDE COMMODE WITH STAFF ASSIST. PATIENT WAS ABLE TO PARTICIPATE WITH PT. USES URINAL. KEPT CLEAN AND COMFORTABLE. PO FLUIDS TAKEN WELL. ON PAIN MANAGEMENT WITH PRN DILAUDID AND PERCOCET. HOB ELEVATED. BILATERAL HALF SIDE RAILS UP X2. BED IN LOW POSITION, LOCKED, EXIT ALARM ON. CALL LIGHT IN REACH.
--- NOTE | 2022-07-31 19:30 | NUR ---
CRITICAL CARE PARAMEDIC OPENING NOTE RECEIVED PATIENT IN BED, WITH HOB ELEVATED, AWAKE, ALERT AND ORIENTED X4. ABLE TO COMMUNICATE NEEDS WITH THE STAFFS. AFEBRILE AND NOT IN ANY FORM OF ACUTE DISTRESS. ON O1 INHALATION VIA NASAL CANNULA AT 5LPM. ON TELE MONITORING WITH CURRENT READING OF SR. WITH IV ACCESS ON RFA 22G-SL. WITH ACCORDION DRAIN ON R SIDE OF THE LEG, NOTED WITH SANGUINEOUS OUTPUT. SAFETY MEASURES IN PLACE. KEPT BED IN LOCKED AND IN LOW POSITION. SIDE RAILS UP X2. ADVISED TO USE THE CALL LIGHT WHEN IN NEED OF ASSISTANCE.
[2022-07-31] MEDS: ENOXAPARIN SODIUM 40 MG/0.4 ML DISP.SYRIN SQ SCH (19:51)
[2022-07-31 20:00] VITALS: BP 141/68
[2022-07-31] MEDS: ROFLUMILAST 500 MG PO SCH (21:00)
[2022-08-01] VITALS: BP 106/63
[2022-08-01] MEDS: IPRATROPIUM NEB FS 0.5 MG/2.5 ML AMPUL.NEB IH SCH ×6 (01:51→19:49)
[2022-08-01] MEDS: ALBUTEROL FS 2.5 MG/0.5 ML VIAL.NEB NEB SCH ×5 (01:51→19:49)
[2022-08-01 04:00] VITALS: BP 122/67
[2022-08-01] MEDS: HYDROMORPHONE INJ 2 MG/ML DISP.SYRIN IV PRN ×4 (04:13→20:27)
--- NOTE | 2022-08-01 06:30 | NUR ---
STAVE MACHINE TENDER CLOSING NOTE PATIENT IN BED, ASLEEP BUT EASY TO AROUSE AND RESPONSIVE. ABLE TO COMMUNICATE NEEDS WITH THE STAFFS. AFEBRILE AND NOT IN ANY FORM OF ACUTE DISTRESS. ON O2 INHALATION VIA NASAL CANNULA AT 5LPM. ON TELE MONITORING WITH CURRENT READING OF SR 78 WITH PAC. WITH IV ACCESS ON RFA 22G-SL. WITH ACCORDION DRAIN ON R SIDE OF THE LEG, NOTED WITH SANGUINEOUS OUTPUT AT APPROX. 40ML. MEDICATED ORDERED. CONTINUOUS ON IV ATB, MONITORED FOR ANY ADVERSE REACTION. SAFETY MEASURES IN PLACE. KEPT BED IN LOCKED AND IN LOW POSITION. SIDE RAILS UP X2. ADVISED TO USE THE CALL LIGHT WHEN IN NEED OF ASSISTANCE. ALL NURSING NEEDS ATTENDED. ENDORSED TO INCOMING SHIFT FOR CONTINUITY OF CARE.
[2022-08-01 08:00] VITALS: BP 133/78
[2022-08-01] MEDS: INCRUSE ELLIPTA INH SCH (08:59)
[2022-08-01] MEDS: POLYETHYLENE GLYCOL 3350 17 GM POWD.PACK PO SCH ×2 (08:59→09:00)
[2022-08-01] MEDS: LOSARTAN POTASSIUM 25 MG TABLET PO SCH (09:00)
[2022-08-01] MEDS: FERROUS SULFATE (325 MG) 325 MG/TAB TABLET PO SCH ×2 (09:00→17:30)
[2022-08-01] MEDS: BUDESONIDE INH SCH ×2 (09:00→17:00)
[2022-08-01] MEDS: FORMOTEROL FUMARATE INH SCH ×2 (09:00→17:00)
[2022-08-01] MEDS: AMLODIPINE BESYLATE 10 MG TABLET PO SCH (09:01)
[2022-08-01] MEDS: FUROSEMIDE 20 MG TABLET PO SCH (09:02)
[2022-08-01] MEDS: METOPROLOL TARTRATE 50 MG TABLET PO SCH ×2 (09:02→17:29)
[2022-08-01] MEDS: busPIRone 5 MG TABLET PO SCH ×2 (09:02→17:30)
[2022-08-01] MEDS: PANTOPRAZOLE 40 MG TABLET.DR PO SCH (09:02)
[2022-08-01] MEDS: ASPIRIN 81 MG TAB.CHEW PO SCH (09:02)
[2022-08-01] MEDS: ATORVASTATIN 10 MG TABLET PO SCH (09:03)
[2022-08-01] MEDS: GABAPENTIN 300 MG CAPSULE PO SCH ×3 (09:03→17:29)
[2022-08-01] MEDS: NICOTINE PATCH (21MG) 21 MG PATCH.TD24 TD SCH (09:04)
[2022-08-01] MEDS: CEFAZOLIN 2 GM in IV D5W 100 ML IV SCH ×2 (09:05→17:28)
[2022-08-01] MEDS: ALBUTEROL FS 2.5 MG/3 ML VIAL.NEB NEB PRN (11:28)
[2022-08-01 11:57] LABS: BASOPHILS # (AUTO) 0.1 K/uL (0.0-0.2); BASOPHILS % (AUTO) 0.7 % (0.0-2.0); EOSINOPHILS % (AUTO) 1.4 % (0.0-6.0); HEMATOCRIT 26 % (39-51); HEMOGLOBIN 8.6 g/dL (13.5-17.5); LYMPHOCYTES # (AUTO) 1.1 K/uL (0.8-4.8); LYMPHOCYTES % (AUTO) 13.4 % (20.0-44.0); MEAN CORPUSCULAR HGB CONC 33 g/dl (31.0-36.0); MEAN CORPUSCULAR VOLUME 95 fL (80-96); MONOCYTES # (AUTO) 0.7 K/uL (0.1-1.30); MONOCYTES % (AUTO) 8.2 % (2.0-12.0); NEUTROPHILS # (AUTO) 6.2 K/uL (1.8-8.9); NEUTROPHILS % (AUTO) 76.3 % (43.0-81.0); PLATELET COUNT (AUTO) 284 K/uL (150-450); RED BLOOD CELL COUNT(AUTO) 2.76 MIL/uL (4.5-6.0); WHITE BLOOD COUNT (AUTO) 8.1 K/uL (4.3-11.0)
[2022-08-01 12:00] VITALS: BP 115/70
[2022-08-01 12:24] LABS: ALBUMIN 2.8 g/dL (3.4-5.0); BILIRUBIN,TOTAL 0.2 mg/dL (0.2-1.0); CALCIUM, SERUM 8.7 mg/dL (8.5-10.1); CREATININE 1.5 mg/dL (0.6-1.3); MAGNESIUM 2.1 mg/dL (1.8-2.4); PHOSPHORUS 3.7 mg/dL (2.5-4.9); POTASSIUM 3.7 mmol/L (3.5-5.1); TOTAL PROTEIN, SERUM 6.6 g/dL (6.4-8.2)
[2022-08-01] MEDS: PSEUDOEPHEDRINE HCL 30 MG TABLET PO PRN (12:58)
[2022-08-01] MEDS: FLUTICASONE PROPIONATE 16 GM BOTTLE NS PRN (12:59)
[2022-08-01 16:00] VITALS: BP 106/67
[2022-08-01] MEDS: ENOXAPARIN SODIUM 40 MG/0.4 ML DISP.SYRIN SQ SCH (17:35)
[2022-08-01] MEDS: oxyCODONE/APAP (5/325 MG) 1 UDTAB TABLET PO PRN (17:56)
--- NOTE | 2022-08-01 19:50 | NUR ---
SOFTWARE DEVELOPMENT ENGINEER OPENING NOTE PATIENT AWAKE IN BED, ALERT/ORIENTED X 4, PT ABLE TO MAKE NEEDS KNOWN. PATIENT STABLE ON 5 LPM OF O2 VIA NASAL CANNULA, NO S/S OF DISTRESS OR SOB NOTED, BREATHING EVEN AND UNLABORED. PATIENT ON EXTERNAL AUTO BODY REPAIR TEACHER READING SINUS RHYTHM WITH PAC'S, HR: 65. IV ACCESS ON RFA #22G INTACT AND ON TKO. RIGHT LEG ACCORDION DRAIN INTACT WITH SANGUINEOUS OUTPUT. SAFETY MEASURES IN PLACE: CALL LIGHT WITHIN REACH, SIDE RAILS UP X 2, BED LOCKED IN LOWEST POSITION, HOB ELEVATED, BED ALARM ON. WILL CONTINUE TO MONITOR PATIENT
[2022-08-01 20:00] VITALS: BP 121/58
--- NOTE | 2022-08-01 20:30 | NUR ---
CLINICAL SOCIAL WORKER NOTE PATIENT C/O 01/13 RIGHT HIP/LEG PAIN, VITAL SIGNS WNL. PRN DILAUDID 2 MG IV Q4H GIVEN ORDERED. WILL CONTINUE TO MONITOR PATIENT
[2022-08-01] MEDS: ROFLUMILAST 500 MG PO SCH (22:10)
[2022-08-02] VITALS: BP 123/65
[2022-08-02] MEDS: CEFAZOLIN 2 GM in IV D5W 100 ML IV SCH ×4 (00:32→23:08)
[2022-08-02] MEDS: ALBUTEROL FS 2.5 MG/0.5 ML VIAL.NEB NEB SCH ×4 (01:32→19:44)
[2022-08-02] MEDS: IPRATROPIUM NEB FS 0.5 MG/2.5 ML AMPUL.NEB IH SCH ×4 (01:32→19:44)
[2022-08-02] MEDS: HYDROMORPHONE INJ 2 MG/ML DISP.SYRIN IV PRN ×5 (01:41→20:04)
--- NOTE | 2022-08-02 01:45 | NUR ---
WRAPPER LEAF INSPECTOR NOTE PATIENT C/O 01/13 RIGHT HIP/LEG PAIN, VITAL SIGNS WNL. PRN DILAUDID 2 MG IV Q4H GIVEN ORDERED. WILL CONTINUE TO MONITOR PATIENT
[2022-08-02 04:00] VITALS: BP 114/65
--- NOTE | 2022-08-02 07:08 | NUR ---
HEEL SEAT TRIMMER CLOSING NOTE PATIENT SLEEPING IN BED, ALERT/ORIENTED X 4, PT ABLE TO MAKE NEEDS KNOWN. TITRATED PATIENT DOWN TO 4 LPM OF O2 VIA NASAL CANNULA, NO S/S OF DISTRESS OR SOB NOTED, BREATHING EVEN AND UNLABORED, SPO >95%. PATIENT ON EXTERNAL AUTOMATION QTP TESTER READING SINUS RHYTHM WITH PAC'S, HR: 92. IV ACCESS ON RFA #22G INTACT AND SALINE LOCKED. RIGHT LEG ACCORDION DRAIN INTACT WITH SANGUINEOUS OUTPUT OF 50 ML, RIGHT LEG/HIP DRESSING CLEAN, DRY AND INTACT. MEDICATIONS GIVEN ORDERED, PT NEEDS MET THROUGHOUT SHIFT, PT TURNED AND REPOSITIONED. SAFETY MEASURES IN PLACE: CALL LIGHT WITHIN REACH, SIDE RAILS UP X 2, BED LOCKED IN LOWEST POSITION, HOB ELEVATED, BED ALARM ON. ENDORSED TO DAYSHIFT RN FOR CONTINUITY OF CARE
--- NOTE | 2022-08-02 07:15 | NUR ---
RN OPENING NOTE RECEIVED PATIENT IN BED AWAKE, A/O X 4, ABLE OT MAKE NEEDS KNOWN. PATIENT USING URINAL AND BPR. SATURATION 94% ON 5L VIA NC. IV ACCESS RIGHT FOREARM #22, SALINE LOCKED. EXTERNAL LABOUR MARKET ECONOMIST SHOWS SR WITH PACS, HR 92. SAFETY MEASURE IN PLACED, BED LOCKED AND IN LOWEST POSITION, CALL LIGHT AND BEDSIDE TABLE WITHIN PATIENT REACH. WILL CONTINUE TO MONITOR .
[2022-08-02] MEDS: PANTOPRAZOLE 40 MG TABLET.DR PO SCH (07:23)
[2022-08-02 08:00] VITALS: BP 141/72
[2022-08-02] MEDS: PSEUDOEPHEDRINE HCL 30 MG TABLET PO PRN ×2 (08:44→17:18)
[2022-08-02] MEDS: POLYETHYLENE GLYCOL 3350 17 GM POWD.PACK PO SCH ×2 (08:45→08:53)
[2022-08-02] MEDS: NICOTINE PATCH (21MG) 21 MG PATCH.TD24 TD SCH (08:45)
[2022-08-02] MEDS: busPIRone 5 MG TABLET PO SCH ×2 (08:45→17:18)
[2022-08-02] MEDS: LOSARTAN POTASSIUM 25 MG TABLET PO SCH (08:46)
[2022-08-02] MEDS: FUROSEMIDE 20 MG TABLET PO SCH (08:46)
[2022-08-02] MEDS: GABAPENTIN 300 MG CAPSULE PO SCH ×3 (08:47→17:19)
[2022-08-02] MEDS: ASPIRIN 81 MG TAB.CHEW PO SCH (08:47)
[2022-08-02] MEDS: METOPROLOL TARTRATE 50 MG TABLET PO SCH ×2 (08:47→17:19)
[2022-08-02] MEDS: ATORVASTATIN 10 MG TABLET PO SCH (08:47)
[2022-08-02] MEDS: FERROUS SULFATE (325 MG) 325 MG/TAB TABLET PO SCH ×2 (08:47→17:18)
[2022-08-02] MEDS: AMLODIPINE BESYLATE 10 MG TABLET PO SCH (08:48)
[2022-08-02] MEDS: INCRUSE ELLIPTA INH SCH (08:54)
[2022-08-02] MEDS: BUDESONIDE INH SCH ×2 (08:54→17:23)
[2022-08-02] MEDS: FORMOTEROL FUMARATE INH SCH ×2 (08:54→17:23)
[2022-08-02 10:00] VITALS: BP 132/63
[2022-08-02] MEDS: oxyCODONE/APAP (5/325 MG) 1 UDTAB TABLET PO PRN ×2 (12:59→22:12)
[2022-08-02 17:07] VITALS: BP 132/63
[2022-08-02] MEDS: ENOXAPARIN SODIUM 40 MG/0.4 ML DISP.SYRIN SQ SCH (18:29)
--- NOTE | 2022-08-02 19:18 | NUR ---
RN CLOSING NOTE PATIENT IN BED AWAKE, A/O X 4, ABLE OT MAKE NEEDS KNOWN. PATIENT USING URINAL AND BPR. SATURATION 96% ON 5L VIA NC. IV ACCESS RIGHT FOREARM #22, SALINE LOCKED, FLUSHES WELL, HEMADRAIN HAS 50ML. EXTERNAL DIRECTOR INBOUND SALES SHOWS SR, HR 88. SAFETY MEASURE IN PLACED, BED LOCKED AND IN LOWEST POSITION, CALL LIGHT AND BEDSIDE TABLE WITHIN PATIENT REACH. WILL ENDORSE TO THE NEXT SHIFT FOR COLBY.
--- NOTE | 2022-08-02 19:19 | NUR ---
RN NOTES: RECEIVED AWAKE ON BED, A/OX4, ORIENTED TO UNIT AND STAFF, ON O2 AT 4-5 L/MIN VIA NC, SPO2-94%, ON TELE MONITOR SR WITH PAC'S-80'S, IV CANNULA ON THE RFA G#22, TO TITRATE O2 AND WEAN BACK TO RA TOLERATED, CONTINUE ON PT AND SURGICAL DRAINAGE OUTPUT MONITORED Q SHIFT, ONCE LESS THAN 30CC FOR POSSIBLE D/C, HE WAS ACCEPTED IN [facility] [place] PER NOTES ENDORSED BY MORNING SHIFT RN, ORIENTED TO UNIT AND STAFF,KEPT CALL LIGHT WITHIN EASY REACH, SAFETY AND ASPIRATION PRECAUTION OBSERVED.
[2022-08-02 20:00] VITALS: BP 103/68
--- NOTE | 2022-08-02 20:01 | NUR ---
RN NOTES: UPON ENDORSEMENT TIME, HE ASKED WHEN IS HIS NEXT PAIN MEDS, HE COMPLAINED OF PAIN 10/10, HE SAID HE WILL WAIT FOR 1999 TO GET IV PAIN MEDS. PAIN 10/10, NO SOB, SPO2-95%, DILAUDIS GIVEN PER PATIENT REQUEST AFTER NON PHARMACOLOGIC INTERVENTION IS INEFFECTIVE.
--- NOTE | 2022-08-02 20:35 | NUR ---
RN NOTES: IV CANNULA WAS OUT, REINSERT ON THE LEFT WRIST G#24, 2 ATTEMPTS MAD WITH GOOD BACK FLOW, SECURED WITH TRANSPARENT DRESSING AND GAUZE, DILAUDID GIVEN. CN NOTIFIED HE NEEDS MID LINE,HE IS HARD STICK, NSG COMMUNICATIONS PROGRAM MANAGER MADE AWARE.HE WAS INCLUDED IN THE LIST
--- NOTE | 2022-08-02 20:48 | NUR ---
RN NOTES: REPOSITIONED, GIVEN WARM BLANKET, NEEDS ATTENDED KEPT CALL LIGHT WITHIN EASY REACH.
[2022-08-02] MEDS: ROFLUMILAST 500 MG PO SCH (21:42)
--- NOTE | 2022-08-02 21:43 | NUR ---
RN NOTES: HOME MEDS OF ROFLUMILAST(DALIRESP) 2 [id number] MG, UNABLE TO SCAN, UNABLE TO SCAN, MANUALLY ENTERED BARCODE.
--- NOTE | 2022-08-02 22:06 | NUR ---
RN NOTES: MID LINE INSERTED BY VASCULAR NURSEYEE ON THE LYNNETTE-G#22, SECURED WITH TRANSPARENT DRESSING.
--- NOTE | 2022-08-02 22:07 | NUR ---
RN NOTES: COMPLAINED OF MODERATE PAIN ON THE SURGICAL SITE, REQUEST TO HAVE HIS PERCOCET GIVEN.IV DID NOT TOTALLY RELIEVE HIS PAIN.NON PHARMACOLOGIC INTERVENTION RENDERED, WARM BLANKER, DIM LIT DONE.MEDS GIVEN PER PATIENT REQUEST.
--- NOTE | 2022-08-02 23:09 | NUR ---
RN NOTES; -RN EXPLAINED TO HIM IF WE CAN CHANGE HIS BEDDINGS AND TAKE A PICTURE ON HIS SURGICAL SITE ON THE RIGHT HIP, HE SAID "IN THE MORNING DOCTOR CAME FROM [facility] AND DID MY DRESSING, LET THEM TAKE IT ON MY NEXT DRESSING', HE REFUSED TO DO IT NOW, HE WAS VERBALIZING HE STILL HAVE ON AND OFF PAIN AND HE IS VERY SENSITIVE IF HIS DRESSING IS BEING OPENED. -RN NOTIFIED CHARGE NURSE,HE REFUSED TO TAKE PICTURE ON THE SURGICAL SITE:RIGHT HIP.
[2022-08-03] VITALS: BP 109/65
[2022-08-03] MEDS: HYDROMORPHONE INJ 2 MG/ML DISP.SYRIN IV PRN ×3 (01:56→10:36)
--- NOTE | 2022-08-03 02:07 | NUR ---
RN NOTES: AROUND 0156 AFTER REPOSITIONING, COMPLAINED OF PAIN 10/10 ON THE RIGHT HIP, REQUEST FOR HIS INJECTION, DILAUDID GIVEN, NON PHARMACOLOGIC INTERVENTION RENDERED, DIM LIT AND ENCOURAGE TO PLAY SOFT MUSIC ON HIS PHONE/TV.
[2022-08-03] MEDS: IPRATROPIUM NEB FS 0.5 MG/2.5 ML AMPUL.NEB IH SCH ×2 (02:23→08:25)
[2022-08-03] MEDS: ALBUTEROL FS 2.5 MG/0.5 ML VIAL.NEB NEB SCH ×2 (02:23→08:25)
[2022-08-03 04:00] VITALS: BP 120/71
--- NOTE | 2022-08-03 06:19 | NUR ---
RN NOTES: HE COMPLAINED OF PAIN 10/10 HE ASKED FOR HIS IV PAIN MEDICATION, NON PHARMACOLOGIC INTERVENTION IS INEFFECTIVE.
--- NOTE | 2022-08-03 06:38 | NUR ---
RN NOTES: TURNED AND REPOSITIONED, PAIN MEDICATION GIVEN PER PATIENT REQUEST, VERY PARTICULAR WITH HIS PAIN MEDS BOTH ORAL AND IV,ON TELE MONITOR SINUS TACHYCARDIA-108, ON O2 AT 4L/MIN VIA NC, TOTAL OUTPUT 1,600, NO BM, HEMOVAC DRAINED=80ML, SEROSANGUINEOUS, LATEST WEIGHT 295, NO LABS IN THE MORNING, ENDORSED TO TITRATE O2 TO WEAN BACK TO ROOM AIR, FOR PT THIS MORNING, ENDORSED FOR CONTINUITY OF CARE.KEPT CALL LIGHT WITHIN EASY REACH.
--- NOTE | 2022-08-03 07:10 | NUR ---
RN OPENING NOTE RECEIVED PATIENT IN BED AWAKE, A/O X 4, ABLE OT MAKE NEEDS KNOWN. SATURATION 9% ON 5L VIA NC. IV ACCESS RIGHT FOREARM #22, SALINE LOCKED. PER DIRECTOR OF SALES MARKETING NURSE, PT HAD ASK FOR PAIN MEDICATION DURING THE NIGHT, NO C/O ACUTE PAIN AT THIS TIME. SAFETY MEASURE IN PLACED, BED LOCKED AND IN LOWEST POSITION, CALL LIGHT AND BEDSIDE TABLE WITHIN PATIENT REACH. WILL CONTINUE TO MONITOR .
[2022-08-03] MEDS: PANTOPRAZOLE 40 MG TABLET.DR PO SCH (07:23)
[2022-08-03 08:00] VITALS: BP 125/81
[2022-08-03] MEDS: CEFAZOLIN 2 GM in IV D5W 100 ML IV SCH (08:24)
[2022-08-03] MEDS: FORMOTEROL FUMARATE INH SCH (08:55)
[2022-08-03] MEDS: BUDESONIDE INH SCH (08:55)
[2022-08-03] MEDS: FERROUS SULFATE (325 MG) 325 MG/TAB TABLET PO SCH (08:56)
[2022-08-03] MEDS: PSEUDOEPHEDRINE HCL 30 MG TABLET PO PRN (08:56)
[2022-08-03] MEDS: AMLODIPINE BESYLATE 10 MG TABLET PO SCH (08:56)
[2022-08-03] MEDS: INCRUSE ELLIPTA INH SCH (08:56)
[2022-08-03] MEDS: ATORVASTATIN 10 MG TABLET PO SCH (08:57)
[2022-08-03] MEDS: LOSARTAN POTASSIUM 25 MG TABLET PO SCH (08:57)
[2022-08-03] MEDS: GABAPENTIN 300 MG CAPSULE PO SCH (08:57)
[2022-08-03] MEDS: busPIRone 5 MG TABLET PO SCH (08:58)
[2022-08-03] MEDS: ASPIRIN 81 MG TAB.CHEW PO SCH (08:58)
[2022-08-03] MEDS: NICOTINE PATCH (21MG) 21 MG PATCH.TD24 TD SCH (08:58)
[2022-08-03] MEDS: METOPROLOL TARTRATE 50 MG TABLET PO SCH (08:58)
[2022-08-03] MEDS: FUROSEMIDE 20 MG TABLET PO SCH (08:58)
[2022-08-03] MEDS: POLYETHYLENE GLYCOL 3350 17 GM POWD.PACK PO SCH ×2 (08:59)
[2022-08-03 11:08] LABS: BASOPHILS # (AUTO) 0.1 K/uL (0.0-0.2); BASOPHILS % (AUTO) 0.6 % (0.0-2.0); EOSINOPHILS % (AUTO) 1.9 % (0.0-6.0); HEMATOCRIT 25 % (39-51); HEMOGLOBIN 8.3 g/dL (13.5-17.5); LYMPHOCYTES # (AUTO) 1.3 K/uL (0.8-4.8); MEAN CORPUSCULAR HGB CONC 33 g/dl (31.0-36.0); MEAN CORPUSCULAR VOLUME 95 fL (80-96); MONOCYTES % (AUTO) 10.4 % (2.0-12.0); NEUTROPHILS # (AUTO) 7.3 K/uL (1.8-8.9); NEUTROPHILS % (AUTO) 74.1 % (43.0-81.0); PLATELET COUNT (AUTO) 336 K/uL (150-450); RED BLOOD CELL COUNT(AUTO) 2.67 MIL/uL (4.5-6.0); WHITE BLOOD COUNT (AUTO) 9.9 K/uL (4.3-11.0)
[2022-08-03 11:19] VITALS: BP 125/81
--- NOTE | 2022-08-03 12:20 | NUR ---
PATIENT D/C, TRANSFERRED TO [facility]. REPORT GIVEN TO DI.
== END 2022-08-03 12:40 | DRG 309 ==
LOC: DS 11:04 → MED 13:12 → ICU 17:55 → TELE1 07-27 10:19 → MEDSG1 08-03 11:05
PROVIDERS: ADMIT Internal Medicine
PROC: 0QP804Z Removal of Internal Fixation Device from Right Femoral Shaft, Open Approach (ICD-10-PCS; principal; 2022-07-26)
PROC: 0QS806Z Reposition Right Femoral Shaft with Intramedullary Internal Fixation Device, Open Approach (ICD-10-PCS; 2022-07-26)
PROC: 30233N1 Transfusion of Nonautologous Red Blood Cells into Peripheral Vein, Percutaneous Approach (ICD-10-PCS; 2022-07-26)
PROC: 05HC33Z Insertion of Infusion Device into Left Basilic Vein, Percutaneous Approach (ICD-10-PCS; 2022-08-02)
DX: M80.851 Other osteoporosis with current pathological fracture, right femur (principal); J96.01 Acute respiratory failure with hypoxia; N17.0 Acute kidney failure with tubular necrosis; E44.1 Mild protein-calorie malnutrition; J15.9 Unspecified bacterial pneumonia; D62 Acute posthemorrhagic anemia; D63.8 Anemia in other chronic diseases classified elsewhere; E88.09 Other disorders of plasma-protein metabolism, not elsewhere classified; I48.91 Unspecified atrial fibrillation; J44.0 Chronic obstructive pulmonary disease with (acute) lower respiratory infection; S72.301K Unspecified fracture of shaft of right femur, subsequent encounter for closed fracture with nonunion; X58.XXXD Exposure to other specified factors, subsequent encounter; J44.9 Chronic obstructive pulmonary disease, unspecified; Z20.822 Contact with and (suspected) exposure to COVID-19; W19.XXXD Unspecified fall, subsequent encounter; Z79.84 Long term (current) use of oral hypoglycemic drugs; Z79.51 Long term (current) use of inhaled steroids; Z79.82 Long term (current) use of aspirin; Z79.899 Other long term (current) drug therapy; E87.70 Fluid overload, unspecified; F17.210 Nicotine dependence, cigarettes, uncomplicated; G89.4 Chronic pain syndrome; I25.10 Atherosclerotic heart disease of native coronary artery without angina pectoris; Z68.42 Body mass index [BMI] 45.0-49.9, adult; E66.01 Morbid (severe) obesity due to excess calories; Z91.81 History of falling; Z96.651 Presence of right artificial knee joint
CPT/HCPCS: 36410; 36415; 36600; 71045-TC; 73502; 73552; 76770-TC; 80048-TC; 80053-TC; 81001; 82570-TC; 82803-TC; 82962-TC; 83735-TC; 83880; 84100-TC; 84300-TC; 85025-TC; 85027-TC; 86850-TC; 94799-TC; 97112-TC; 97116-TC; 97530-TC; A4217; A4223; A6209; A6253; C1713; C9803; G0378; J0171; J0461; J0690; J1170; J1650; J1940; J2175; J2250; J2270; J2405; J2704; J3010; J3370; J3490; J7050; J7060; P9016